=== PATIENT | male | born 1985 | race Caucasian/White ===

== ENCOUNTER 2018-02-16 11:36 | Emergency (ER) | payer OTHER ==
[~2018-02-16] VITALS: Ht 190.5 cm; Wt 81.7 kg
[~2018-02-16 11:36] MED LIST: Bactrim Ds Tab1 EACH PO; Cleocin HCl300 MG PO; IBUP600 PO; Keflex500 MG PO; NAPR550 PO; Norco 5-325 Ta1 EACH PO; Ultram50 MG PO
[2018-02-16] MEDS ORDERED: CRUTCH4 XX (12:16)
[2018-02-16] MEDS ORDERED: NAPR550 PO (12:18)
== END 2018-02-16 12:27 | disposition home or self-care (01) ==
LOC: ER 11:36
DX: S90.32XA Contusion of left foot, initial encounter (principal); F17.210 Nicotine dependence, cigarettes, uncomplicated; W22.8XXA Striking against or struck by other objects, initial encounter
CPT/HCPCS: 29515; 73630; 99283

== ENCOUNTER 2018-04-28 16:56 | Emergency (ER) | payer OTHER ==
[~2018-04-28] VITALS: Ht 190.5 cm; Wt 81.7 kg
[~2018-04-28 16:56] MED LIST changes: +CRUTCH4 XX; +IBUP800 PO
== END 2018-04-28 17:34 | disposition home or self-care (01) ==
LOC: ER 16:56
DX: L02.416 Cutaneous abscess of left lower limb (principal); F17.210 Nicotine dependence, cigarettes, uncomplicated
CPT/HCPCS: 99282

== ENCOUNTER 2018-10-25 07:37 | Emergency (ER) | payer OTHER ==
[~2018-10-25] VITALS: Ht 190.5 cm; Wt 81.7 kg
== END 2018-10-25 09:06 | disposition home or self-care (01) ==
LOC: ER 07:37
DX: S51.811A Laceration without foreign body of right forearm, initial encounter (principal); Y04.8XXA Assault by other bodily force, initial encounter; F17.210 Nicotine dependence, cigarettes, uncomplicated
CPT/HCPCS: 99283

== ENCOUNTER 2018-11-25 11:32 | Emergency (ER) | payer OTHER ==
[~2018-11-25] VITALS: Ht 177.8 cm; Wt 79.4 kg
[2018-11-25 12:34] LABS: BASOPHILS ABSOLUTE AUTO 0.05 K/mm3 (0.00-0.23); BASOPHILS PERCENT AUTO 1 % (0-2); EOSINOPHILS ABSOLUTE AUTO 0.22 K/mm3 (0.00-0.68); EOSINOPHILS PERCENT AUTO 2 % (0-6); Hematocrit 41.8 % (37.0-53.0); Hemoglobin 13.6 g/dL (13.5-17.5); IMMATURE GRAN ABSOLUTE AUTO 0.03 K/mm3 (0.00-0.10); IMMATURE GRAN PERCENT AUTO 0 % (0-1); LYMPHOCYTES ABSOLUTE AUTO 2.01 K/mm3 (0.84-5.20); LYMPHOCYTES PERCENT AUTO 20 % (21-46); MONOCYTES ABSOLUTE AUTO 0.93 K/mm3 (0.16-1.47); MONOCYTES PERCENT AUTO 9 % (4-13); Mean Corpuscular HGB 28.8 pg (26.0-34.0); Mean Corpuscular HGB Conc 32.5 g/dL (31.5-36.5); Mean Corpuscular Volume 89 fL (80-100); Mean Platelet Volume 9.5 fL (9.1-12.4); NEUTROPHILS ABSOLUTE AUTO 6.77 K/mm3 (1.96-9.15); NEUTROPHILS PERCENT AUTO 68 % (41-73); Platelet Count 340 K/mm3 (150-400); RDW Coefficient Variation 13.8 % (11.7-14.2); RDW Standard Deviation 45.2 fL (35.1-46.3); Red Blood Cell Count 4.72 M/mm3 (4.30-5.90); White Blood Cell Count 10.01 K/mm3 (4.00-11.30)
[2018-11-25] MEDS ORDERED: CEPH500 PO (12:39)
[2018-11-25] MEDS ORDERED: Bactrim Ds Tab1 EACH PO (12:39)
[2018-11-25 12:53] LABS: Anion Gap 6 mmol/L (6-16); Blood Urea Nitrogen 9 mg/dL (8-24); Bun/Creatinine Ratio 13.6 (12.0-20.0); CO2, Blood 25 mmol/L (21-32); Calcium, Blood 8.9 mg/dL (8.5-10.1); Chloride, Blood 103 mmol/L (98-108); Creatinine, Blood 0.66 mg/dL (0.60-1.20); Glomerular Filtration Rate >60 (60-); Glucose, Blood 100 mg/dL (70-99); Sodium, Blood 134 mmol/L (136-145)
== END 2018-11-25 12:46 | disposition home or self-care (01) ==
LOC: ER 11:32
PROVIDERS: Physician Assistant
DX: L03.113 Cellulitis of right upper limb (principal); F17.210 Nicotine dependence, cigarettes, uncomplicated
CPT/HCPCS: 36415; 80048; 85025; 87070; 87075; 87147; 87205; 96365; 99283-25; J0690

== ENCOUNTER 2019-12-04 18:42 | Emergency (ER) | payer OTHER ==
[~2019-12-04] VITALS: Ht 190.5 cm; Wt 83.9 kg
[~2019-12-04 18:42] MED LIST changes: +CEPH500 PO
[2019-12-04] MEDS ORDERED: Cleocin HCl300 MG PO (19:24)
== END 2019-12-04 19:34 | disposition home or self-care (01) ==
LOC: ER 18:42
DX: K05.319 Chronic periodontitis, localized, unspecified severity (principal); K13.0 Diseases of lips; F17.210 Nicotine dependence, cigarettes, uncomplicated
CPT/HCPCS: 10060; 99282-25

== ENCOUNTER → 2022-05-27 | Outpatient (CLI) | payer OTHER | END | disposition home or self-care (01) | LOC: LAB 17:27 → LAB SHORT 17:27 | DX: L03.114 Cellulitis of left upper limb (principal) | CPT/HCPCS: 87070; 87077; 87147; 87186; 87205 ==